=== PATIENT | female | born 1970 | race Caucasian/White ===

== ENCOUNTER 2017-11-23 04:59 | Emergency (ER) | payer OTHER ==
[2017-11-23 05:18] VITALS: BP 101/51; PULSE 70; TEMP 97.5; BMI 20.6
[2017-11-23] MEDS ORDERED: AMOX TR/POT CLAV 500MG/125MG TABLETS (FP) PO ONE (05:28)
--- NOTE | 2017-11-23 05:28 | PDOC ---
History of Present Illness - General Chief Complaint: Pain Stated Complaint: JOINT PAIN Time Seen by Provider: 11/23/17 05:21 History Source: Patient Past History - Past Medical History Allergies/Adverse Reactions: Allergies Allergy/AdvReac Type Severity Reaction Status Date / Time No Known Allergies Allergy Verified 11/23/17 05:14 Home Medications: Ambulatory Orders Adalimumab [Humira] 40 mg SQ DAILY 02/07/12 Amox-Tr/K Cl [Augmentin 500Mg Tablet] 1 tab PO BID #20 tablet 11/23/17 Ibuprofen [Motrin] 600 mg PO TID #30 tablet 11/23/17 Oxycodone HCl/Acetaminophen [Percocet 5-325 mg Tablet] 1 - 2 tab PO Q6H #20 tablet MDD 4 11/23/17 COPD: No Other medical history: Psoriatic arthritis, psoriasis. - Suicide/Smoking/Psychosocial Hx Smoking Status: No Smoking History: Never smoked Have you smoked in the past 12 months: No Number of Cigarettes Smoked Daily: 0 Information on smoking cessation initiated: No Hx Alcohol Use: No Drug/Substance Use Hx: No Substance Use Type: None *Physical Exam - Vital Signs Last Vital Signs Temp Pulse Resp BP Pulse Ox 97.5 F L 70 18 101/51 99 11/23/17 05:14 11/23/17 05:14 11/23/17 05:14 11/23/17 05:14 11/23/17 05:14 Medical Decision Making - Medical Decision Making 11/23/17 05:33 Dr. Harris: The scribe's documentation has been prepared under my direction and personally reviewed by me in its entirery. I confirm that the note above accurately reflects all work, treatment, procedures, and medical decision making performed by me. *DC/Admit/Observation/Transfer Diagnosis at time of Disposition: Cellulitis Qualifiers: Site of cellulitis: extremity Site of cellulitis of extremity: upper extremity Laterality: right Qualified Code(s): L03.113 - Cellulitis of right upper limb - Discharge Dispostion Disposition: HOME Condition at time of disposition: Stable Admit: No - Prescriptions Prescriptions: Amox-Tr/K Cl [Augmentin 500Mg Tablet] 1 tab PO BID #20 tablet Ibuprofen [Motrin] 600 mg PO TID #30 tablet Oxycodone HCl/Acetaminophen [Percocet 5-325 mg Tablet] 1 - 2 tab PO Q6H #20 tablet MDD 4 - Referrals Referrals: Reinaldo Reynaga MD [Staff Physician] - - Patient Instructions Printed Discharge Instructions: DI for Cellulitis -- Adult Additional Instructions: Take medications as directed. Keep right elbow clean and dry WASh with soap and water. Return if any problems - Post Discharge Activity
[2017-11-23] MEDS ORDERED: IBUPROFEN 600 MG TABLET (FP) PO STA (05:29)
[2017-11-23] MEDS ORDERED: AMOX TR/POT CLAV 500MG/125MG TABLETS (FP) ONE (05:30)
[2017-11-23] MEDS ORDERED: IBUPROFEN 600 MG TABLET (FP) PO ONE (05:30)
== END 2017-11-23 05:35 | disposition home or self-care (01) ==
LOC: JER 04:59
DX: L03.113 Cellulitis of right upper limb (principal)
CPT/HCPCS: 99281-25

== ENCOUNTER 2021-09-04 09:16 | Emergency (ER) | payer OTHER ==
[2021-09-04] MEDS ORDERED: SOTROVIMAB 500 MG in SODIUM CHLORIDE 100 ML IVPB ONE (09:41)
[2021-09-04 09:44] VITALS: TEMP 97.4; BMI 21.1
[2021-09-04] MEDS ORDERED: ACETAMINOPHEN INJECTION 100 ML IVPB ONE (10:14)
[2021-09-04] MEDS ORDERED: ACETAMINOPHEN 1000 MG/100 ML BAG IVPB ONE (10:22)
[2021-09-04] MEDS ORDERED: SODIUM CHLORIDE 1,000 ML IV STA (10:22)
[2021-09-04 13:17] VITALS: BP 123/68; PULSE 68
== END 2021-09-04 13:00 ==
LOC: JCOVINFU 09:16 → JER 09:16 → JCOVINFU 13:00
PROC: 3E0333Z Introduction of Anti-inflammatory into Peripheral Vein, Percutaneous Approach (ICD-10-PCS; principal; 2021-09-04)
PROC: 3E03329 Introduction of Other Anti-infective into Peripheral Vein, Percutaneous Approach (ICD-10-PCS; 2021-09-04)
PROC: 3E0337Z Introduction of Electrolytic and Water Balance Substance into Peripheral Vein, Percutaneous Approach (ICD-10-PCS; 2021-09-04)
DX: U07.1 COVID-19 (principal)
CPT/HCPCS: 99284-25; J0131; M0247; Q0247